=== PATIENT | female | born 1975 | race Caucasian/White ===

== ENCOUNTER 2017-04-07 18:07 | Emergency (ER) | payer OTHER ==
[2017-04-07 18:47] VITALS: BMI 39.5
[2017-04-07 18:48] VITALS: TEMP 98
[2017-04-07] MEDS ORDERED: Sodium Chloride 0.9% 1,000 ML IV STA (19:21)
--- NOTE | 2017-04-07 19:23 | ED PDOC ---
Arrival/HPI - General Chief Complaint: GI Problem Time Seen by Provider: 04/07/17 18:58 Historian: Patient - History of Present Illness Narrative History of Present Illness (Text): 04/07/17 19:10 A 42 year old female, who denies any past medical history, presents to the emergency department with a headache, nausea, and vomiting, which began this morning when she woke up. The patient states when she woke up earlier today, she had a significant headache associated with nausea and vomiting. She admits to taking mediation from [place] and reports it has improved her symptoms, but did not resolve them completely. She still has nausea and vomiting, but is now experiencing dizziness whenever she moves or gets up. The patient denies any vision changes, generalized weakness, chest pain, focal deficits, or any other complaints at this time. Time/Duration: 24 hours (This morning) Symptom Course: Unchanged Activities at Onset: Rest Context: Home Past Medical History - Provider Review Nursing Documentation Reviewed: Yes - Psychiatric Hx Substance Use: No Family/Social History - Physician Review Nursing Documentation Reviewed: Yes Family/Social History: No Known Family HX, Unknown Family HX Smoking Status: Never Smoked Hx Alcohol Use: No Hx Substance Use: No Allergies/Home Meds Allergies/Adverse Reactions: Allergies No Known Allergies Allergy (Verified 04/07/17 18:47) Review of Systems - Physician Review All systems were reviewed & negative as marked: Yes - Review of Systems Eyes: absent: Vision Changes Cardiovascular: absent: Chest Pain Gastrointestinal: Nausea, Vomiting Musculoskeletal: Other (left heel pain x 2 weeks ) Neurological: Headache, Dizziness Physical Exam Vital Signs Reviewed: Yes Vital Signs Temp Pulse Resp BP Pulse Ox 04/07/17 18:47 98 F 67 16 142/85 99 Temperature: Afebrile Blood Pressure: Normal Pulse: Regular Respiratory Rate: Normal Appearance: Positive for: Well-Appearing, Non-Toxic, Comfortable Pain Distress: None Mental Status: Positive for: Alert and Oriented X 3 - Systems Exam Head: Present: Atraumatic, Normocephalic Pupils: Present: PERRL Mouth: Present: Moist Mucous Membranes Neck: Present: Normal Range of Motion Respiratory/Chest: Present: Clear to Auscultation, Good Air Exchange. No: Respiratory Distress, Accessory Muscle Use Cardiovascular: Present: Regular Rate and Rhythm, Normal S1, S2. No: Murmurs Abdomen: Present: Tenderness Back: Present: Normal Inspection Upper Extremity: Present: Normal Inspection. No: Cyanosis, Edema Lower Extremity: Present: Normal Inspection. No: Edema Neurological: Present: GCS=15, Speech Normal Skin: Present: Warm, Dry, Normal Color. No: Rashes Psychiatric: Present: Alert, Oriented x 3, Normal Insight, Normal Concentration Medical Decision Making ED Course and Treatment: 04/07/17 19:27 Impression: A 42 year old female with a headache, nausea, and vomiting. Differential Diagnosis included but are not limited to: Plan: -- Head CT -- EKG -- Left Heel Radiology -- Toradol, Antivert, Reglan, IV Fluids -- Labs -- Urinalysis -- Reassess and disposition Prior Visits: Notes and results from previous visits were reviewed. Patient was last seen in the emergency department on [facility] Notes: 04/07/17 19:42 EKG: Ordered, reviewed, and independently interpreted the EKG. Rate : 70 BPM Rhythm : NSR Interpretation : No ST-segment elevations or depressions, no T-wave inversions, normal intervals. Comparison : No previous EKG for comparison. - Lab Interpretations Lab Results: 04/07/17 19:35 04/07/17 19:35 Lab Results 04/07/17 19:35: Sodium 139, Potassium 4.0, Chloride 100, Carbon Dioxide 28, Anion Gap 15, BUN 8, Creatinine 0.6, Est GFR ( Amer) > 60, Est GFR (Non- Af Amer) > 60, Random Glucose 87, Calcium 9.3, Magnesium 2.0, Total Bilirubin 0.5, AST 25, ALT 23, Alkaline Phosphatase 66, Lactate Dehydrogenase 354, Total Creatine Kinase 128, Troponin I < 0.01, Total Protein 8.1, Albumin 4.3, Globulin 3.9, Albumin/Globulin Ratio 1.1, Lipase 71 04/07/17 19:35: WBC 6.4, RBC 4.44, Hgb 11.8 L, Hct 35.4 L, MCV 79.7 L, MCH 26.6 , MCHC 33.3, RDW 13.5, Plt Count 284, MPV 10.2, Gran % 50.2, Lymph % (Auto) 39.5 H, Harmon % (Auto) 8.3 H, Eos % (Auto) 1.7, Baso % (Auto) 0.3, Gran # 3.22, Lymph # 2.5, Harmon # 0.5, Eos # 0.1, Baso # 0.02 04/07/17 19:35: Urine Color Yellow, Urine Appearance Clear, Urine pH 7.0, Ur Specific [place] 1.020, Urine Protein Negative, Urine Glucose (UA) Negative, Urine Ketones Negative, Urine Blood Small H, Urine Nitrate Negative, Urine Bilirubin Negative, Urine Urobilinogen 0.2, Ur Leukocyte Esterase Trace H, Urine RBC 0 - 2, Urine WBC 1 - 3, Ur Epithelial Cells 3 - 4, Urine Bacteria Few - RAD Interpretation Radiology Orders: 04/07/17 19:18 HEEL LEFT [RAD] Stat 04/07/17 19:21 Brain [HEAD W/O CONTRAST] [CT] Stat - Medication Orders Current Medication Orders: Discontinued Medications Sodium Chloride (Sodium Chloride 0.9%) 1,000 mls @ 999 mls/hr IV .Q1H1M STA Stop: 04/07/17 20:21 Last Admin: 04/07/17 20:18 Dose: 999 mls/hr Ketorolac Tromethamine (Toradol) 30 mg IVP STAT STA Stop: 04/07/17 19:21 Last Admin: 04/07/17 20:17 Dose: 30 mg Meclizine HCl (Antivert) 25 mg PO STAT STA Stop: 04/07/17 19:22 Last Admin: 04/07/17 20:16 Dose: 25 mg Metoclopramide HCl (Reglan) 10 mg IVP STAT STA Stop: 04/07/17 19:21 Last Admin: 04/07/17 20:18 Dose: 10 mg - PA / CASKET LINER / Resident Statement MD/ has reviewed & agrees with the documentation as recorded. - Scribe Statement The provider has reviewed the documentation as recorded by the Ashuibneema Barrera Provider Scribe Attestation: All medical record entries made by the Scribe were at my direction and personally dictated by me. I have reviewed the chart and agree that the record accurately reflects my personal performance of the history, physical exam, medical decision making, and the department course for this patient. I have also personally directed, reviewed, and agree with the discharge instructions and disposition. Disposition/Present on Arrival - Present on Arrival Any Indicators Present on Arrival: No History of DVT/PE: No History of Uncontrolled Diabetes: No Urinary Catheter: No History of Decub. Ulcer: No History Surgical Site Infection Following: None - Disposition Have Diagnosis and Disposition been Completed?: Yes Diagnosis: Vertigo, Plantar fasciitis Disposition Time: 21:50 Patient Plan: Discharge Condition: GOOD Discharge Instructions (ExitCare): Vertigo (ED), Plantar Fasciitis (ED) Additional Instructions: Take the medications as prescribed. Follow up in the medical clinic. Use ibuprofen as needed for your headache and/or heel pain and perform the exercises described to you. Return to the emergency department if any new concerning symptoms. Prescriptions: Ibuprofen [Motrin Tab] 1 tab PO Q8H PRN #20 tab PRN Reason: Pain, Moderate (4-7) Meclizine [Antivert] 1 tab PO TID PRN #15 tab PRN Reason: Dizziness Ondansetron ODT [Zofran ODT] 1 tab PO Q8H PRN #10 odt PRN Reason: Nausea/Vomiting Referrals: [facility] [place] - Follow up with primary Forms: [employer] (Sudanese)
[2017-04-07 19:56] LABS: BASO # 0.02 K/mm3 (0.0-2.0); BASO % 0.3 % (0.0-3.0); EOS # 0.1 (0.0-0.7); EOS % 1.7 % (1.5-5.0); GRAN # 3.22 (1.4-6.5); GRAN % 50.2 % (50.0-68.0); HEMOGLOBIN 11.8 gm/dL (12.0-16.0); LYMPH # 2.5 (1.2-3.4); LYMPH % 39.5 % (22.0-35.0); MEAN CELL VOLUME 79.7 fL (80.0-105.0); MEAN CORPUSCULAR HEMOGLOBIN 26.6 pg (25.0-35.0); MEAN CORPUSCULAR HGB CONC 33.3 g/dl (31.0-37.0); MEAN PLATELET VOLUME 10.2 fl (7.0-11.0); MONO # 0.5 (0.1-0.6); MONO % 8.3 % (1.0-6.0); PLATELET COUNT 284 10^3/uL (120.0-450.0); RBC 4.44 10^6/uL (3.5-6.1); RED CELL DISTRIBUTION WIDTH 13.5 % (11.5-14.5); WHITE BLOOD COUNT 6.4 10^3/ul (4.5-11.0)
[2017-04-07 20:02] LABS: URINE BILIRUBIN NEGATIVE (NEGATIVE); URINE BLOOD SMALL (NEGATIVE); URINE GLUCOSE (UA) NEGATIVE (NEGATIVE); URINE LEUKOCYTE ESTERASE TRACE Leu/uL (NEGATIVE); URINE NITRATE NEGATIVE (NEGATIVE); URINE PROTEIN NEGATIVE mg/dL (<30 mg/dL); URINE UROBILINOGEN 0.2 E.U./dL (<1 E.U./dL)
[2017-04-07 20:03] LABS: URINE APPEARANCE CLEAR (CLEAR); URINE COLOR YELLOW (YELLOW)
[2017-04-07 20:05] LABS: ALB/GLOB RATIO 1.1 (1.1-1.8); ALBUMIN 4.3 g/dL (3.0-4.8); ALT/SGPT 23 U/L (7-56); AST/SGOT 25 U/L (15-39); BLOOD UREA NITROGEN 8 mg/dL (7-21); CALCIUM 9.3 mg/dL (8.4-10.5); GFR AFRICAN-AMERICAN > 60; GFR NON-AFRICAN AMERICAN > 60; LIPASE 71 U/L (23-300)
[2017-04-07 20:15] LABS: TROPONIN I < 0.01 ng/mL
[2017-04-07 20:16] LABS: URINE BACTERIA FEW (NEG); URINE RBC 0 - 2 /hpf (0-2)
--- NOTE | 2017-04-07 20:37 | CT ---
EXAM: CT Head Without Intravenous Contrast CLINICAL HISTORY: 42 years old, female; Pain; Headache; Additional info: Headache, vomiting TECHNIQUE: Axial computed tomography images of the head/brain without intravenous contrast. This CT exam was performed using one or more of the following dose reduction techniques: automated exposure control, adjustment of the mA and/or kV according to patient size, and/or use of iterative reconstruction technique. EXAM DATE/TIME: 04/07/2017 7:21 PM COMPARISON: No relevant prior studies available. FINDINGS: BRAIN: No significant acute abnormality identified. No acute hemorrhage seen within the brain. No acute extra-axial fluid collections visualized. No evidence of significant mass effect within the brain. Normal holliday-white matter differentiation. VENTRICLES: No evidence of significant hydrocephalus. BONES/JOINTS: No acute fractures or other acute bony abnormality noted. SOFT TISSUES: Small complex lesion in the left upper scalp, most likely representing a complex epidermal inclusion cyst/sebaceous cyst. SINUSES: Visualized paranasal sinuses appear clear. MASTOID AIR CELLS: Mastoid air cells appear clear. IMPRESSION: - No acute findings seen within the brain. - See above for remaining findings.
[2017-04-07 22:06] VITALS: BP 146/70; PULSE 70; RESP 14; O2SAT 98
--- NOTE | 2017-04-08 09:51 | CARD ---
APPROVED REPORT EKG Measurement Heart [id number] <Conclusion> Normal sinus rhythm Normal ECG
--- NOTE | 2017-04-08 12:49 | RAD ---
PROCEDURE: Radiographs of the left calcaneus/hindfoot. HISTORY: left heel pain COMPARISON: None available. TECHNIQUE: Frontal and lateral radiographs of the calcaneus. FINDINGS: No fracture or joint dislocation. No focal lesion. No calcaneal spur. IMPRESSION: Unremarkable radiographs of the left calcaneus /hindfoot.
== END 2017-04-07 22:05 | disposition home or self-care (01) ==
LOC: ED 18:07
DX: M72.2 Plantar fascial fibromatosis (principal); R42 Dizziness and giddiness
CPT/HCPCS: 70450; 73650; 80053; 81001; 82550; 83615; 83690; 83735; 84484; 85025; 87086; 93005; 96374; 96375; 99284; J1885; J2765; J7040